=== PATIENT | male | born 1995 | race Caucasian/White ===

== ENCOUNTER 2019-05-24 16:34 | Emergency (ER) | payer OTHER ==
[~2019-05-24] VITALS: Ht 167.6 cm; Wt 61.2 kg
[2019-05-24 17:35] LABS: URINE BILIRUBIN NEGATIVE (Negative); URINE BLOOD NEGATIVE (Negative); URINE CLARITY CLEAR; URINE COLOR YELLOW; URINE GLUCOSE-RANDOM NEGATIVE (Negative); URINE KETONES NEGATIVE (Negative); URINE LEUKOCYTES-REFLEX NEGATIVE (Negative); URINE NITRITE-REFLEX NEGATIVE (Negative); URINE PROTEIN NEGATIVE (Negative); URINE SPECIFIC GRAVITY 1.025 (1.005-1.030); URINE UROBILINOGEN 0.2 E.U./dl (0.2-1.0)
[2019-05-24] MEDS ORDERED: ACYCLOVIR 400400 MG PO (17:56)
[2019-05-24 18:10] VITALS: BP 113/71
== END 2019-05-24 18:11 | disposition home or self-care (01) ==
LOC: M.ERS 16:34
PROVIDERS: Nurse Practitioner Family
DX: N48.89 Other specified disorders of penis (principal); J45.909 Unspecified asthma, uncomplicated; Z88.5 Allergy status to narcotic agent